=== PATIENT | female | born 1960 | race Caucasian/White ===

== ENCOUNTER 2023-02-26 06:55 | Day surgery (SDC) | payer MEDICAID ==
[2023-02-26] VITALS (7 sets, daily range): BP systolic 121–148; BP diastolic 42–78; PULSE 63–73; RESP 16; TEMP 98.7; O2SAT 90–95
[~2023-02-26] VITALS: Ht 154.9 cm; Wt 97.5 kg
[2023-02-26] MEDS ORDERED: normal saline 1000ml 1,000 ML IV PRN (07:15)
[2023-02-26] MEDS ORDERED: ATOR40TA72 PO (07:35)
[2023-02-26] MEDS ORDERED: HYDR-3686 PO (07:35)
[2023-02-26] MEDS ORDERED: ERTU15TA PO (07:35)
[2023-02-26] MEDS ORDERED: LEVO50TA8 PO (07:35)
[2023-02-26] MEDS ORDERED: MULT-1085 PO (07:35)
[2023-02-26] MEDS ORDERED: METF-436 PO (07:35)
[2023-02-26] MEDS ORDERED: LISI20TA28 PO (07:35)
[2023-02-26] MEDS ORDERED: IBUP-24 PO (07:37)
[2023-02-26] MEDS ORDERED: midazolam 1 mg/ML 2ml injection ONE ×2 (08:15→09:00)
[2023-02-26] MEDS ORDERED: fentaNYL/PF 50MCG/1 ML 2ML syringe ONE ×2 (08:15→09:00)
[2023-02-26] MEDS ORDERED: LIDOcaine 1% 30ml preserv. free vial ONE (08:16)
[2023-02-26] MEDS ORDERED: heparin sodium, porcine/PF 100unit/ml 5ML syringe ONE (08:16)
[2023-02-26] MEDS ORDERED: normal saline 1000ml 1,000 ML IV SCH (08:30)
[2023-02-26 08:46] LABS: BASOPHILS % (AUTO) 0.6 % (0-1); EOSINOPHILS # (AUTO) 0.4 X10'3 (0-0.9); EOSINOPHILS % (AUTO) 4.6 % (0-6); HEMATOCRIT 43.2 % (35.0-45.0); HEMOGLOBIN 14.1 g/dl (12.0-16.0); LYMPHOCYTES # (AUTO) 1.5 X10'3 (1.1-4.8); LYMPHOCYTES % (AUTO) 17.8 % (21-51); MEAN CORPUSCULAR HEMOGLOBIN 29.5 PG (27.0-31.0); MEAN CORPUSCULAR HGB CONC 32.7 g/dL (33.0-36.5); MEAN CORPUSCULAR VOLUME 90.3 FL (78-98); MEAN PLATELET VOLUME 8.7 FL (7.4-10.4); MONOCYTES # (AUTO) 0.6 X10'3 (0-0.9); MONOCYTES % (AUTO) 7.4 % (2-12); NEUTROPHILS % (AUTO) 69.6 % (42-75); PLATELET COUNT 231 X10'3 (140-440); RED BLOOD COUNT 4.78 X10'6 (4.20-5.60); RED CELL DISTRIBUTION WIDTH 13.7 % (11.5-14.5); WHITE BLOOD COUNT 8.6 X10'3 (4.5-11.0)
[2023-02-26 08:53] LABS: PROTHROMBIN TIME 9.6 SECONDS (9.0-12.0)
[2023-02-26 09:01] LABS: INR 0.9 INR
== END 2023-02-26 10:55 | disposition home or self-care (01) ==
LOC: SSTAY O 06:55
PROVIDERS: ATTEND Radiology Diagnostic Radiology
DX: C54.1 Malignant neoplasm of endometrium (principal); E11.9 Type 2 diabetes mellitus without complications; E78.00 Pure hypercholesterolemia, unspecified; E03.9 Hypothyroidism, unspecified; I10 Essential (primary) hypertension; E66.9 Obesity, unspecified; Z68.41 Body mass index [BMI] 40.0-44.9, adult; M19.90 Unspecified osteoarthritis, unspecified site; Z87.442 Personal history of urinary calculi; Z98.890 Other specified postprocedural states; Z98.51 Tubal ligation status; Z96.652 Presence of left artificial knee joint; Z88.2 Allergy status to sulfonamides; Z79.899 Other long term (current) drug therapy; Z79.84 Long term (current) use of oral hypoglycemic drugs
CPT/HCPCS: 36415; 36561; 76937; 77001; 82948; 85025; 85610; 99152; 99153; J1642; J2250; J3010; J3490; J7030; 76942; A4620; C1769; C1894